=== PATIENT | female | born 1970 | race Asian ===

== ENCOUNTER → 2016-08-08 | Outpatient (CLI) | payer OTHER ==
--- NOTE | 2016-08-08 16:31 | DIAGNOSTIC IMAGING REPORT ---
PROCEDURE: MG UNILATERAL DIAG-LT W/CAD INDICATION: 6 months follow up left breast asymmetry. TECHNIQUE: CC, MLO and true-lateral digital views of left breast. In addition, spot compression CC and MLO views were obtained of the central left breast (region of clinical concern). COMPARISON: Comparison is made to left mammogram left breast ultrasound (11/27/2015) and screening mammogram studies (11/08/2015). Study supervised by Dr. Hopson. FINDINGS: MAMMOGRAM: Computer-aided detection applied. Moderately dense parenchymal pattern. No evidence of mass or distortion. IMPRESSION: 1. Negative left mammogram. Resume routine screening schedule (October 2016). RESULT CODE: 1- Negative. A. A negative report should not delay biopsy if a dominant or clinically suspicious mass is present. 10-15% of cancers are not identified by x-ray. B. A negative report may reinforce clinical impression. C. Adenosis and dense breasts may obscure an underlying neoplasm. D. False positive reports average 6-10%. E.. A yearly screening mammogram is recommended. A reminder letter will be scheduled.
== END ==
LOC: MAM SRH 14:22
DX: R92.2 Inconclusive mammogram (principal)